=== PATIENT | male | born 1950 | race Caucasian/White ===

== ENCOUNTER 2020-11-07 02:07 | Outpatient (CLI) | payer MEDICARE, OTHER, SELFPAY ==
[2020-11-07 22:24] LABS: PSA, Screening 1.8 ng/mL (0.0-6.5)
== END 2020-11-07 02:08 | disposition home or self-care (01) ==
PROVIDERS: PCP Nurse Practitioner Family; Visit Provider Nurse Practitioner Family
DX: R63.4 Abnormal weight loss (principal); R35.1 Nocturia
CPT/HCPCS: 36415; 84153; 84443

== ENCOUNTER 2022-11-03 02:49 | Outpatient (CLI) | payer MEDICARE, SELFPAY ==
[2022-11-03 12:28] LABS: Hemoglobin A1C 5.3 % (<5.7)
[2022-11-03 12:31] LABS: Calculated LDL 116 mg/dL (<100); Cholesterol 214 mg/dL (<200); HDL Cholesterol 89 mg/dL (40-60); Triglyceride 46 mg/dL (<150)
== END 2022-11-03 02:50 | disposition home or self-care (01) ==
LOC: LOS 02:49
PROVIDERS: PCP Nurse Practitioner Family; Visit Provider Nurse Practitioner Family
DX: E78.5 Hyperlipidemia, unspecified (principal); R73.09 Other abnormal glucose
CPT/HCPCS: 36415; 80061; 83036

== ENCOUNTER 2024-11-13 03:03 | Outpatient (CLI) | payer MEDICARE, SELFPAY ==
[2024-11-13 12:59] LABS: Calculated LDL 116 mg/dL (<100); Cholesterol 204 mg/dL (<200); HDL Cholesterol 79 mg/dL (>or=40); Triglyceride 48 mg/dL (<150)
[2024-11-13 18:55] LABS: PSA, Screening 2.4 ng/mL (<=6.5)
== END 2024-11-13 03:04 | disposition home or self-care (01) ==
LOC: LOS 03:03
PROVIDERS: PCP Nurse Practitioner Family; Visit Provider Nurse Practitioner Family
DX: Z12.5 Encounter for screening for malignant neoplasm of prostate (principal); Z13.6 Encounter for screening for cardiovascular disorders
CPT/HCPCS: 36415; 80061; 84153